=== PATIENT | male | born 1970 | race Caucasian/White ===

== ENCOUNTER 2016-04-19 18:43 | Emergency (ER) | payer OTHER ==
[~2016-04-19] VITALS: Ht 185.4 cm; Wt 168.6 kg
[~2016-04-19 18:43] MED LIST: ADULT LOW DOSE81 M1 PO; APRODINE TABLE1 EACH PO; CHOLESTEROL MEDS; CLARITIN,ALAVAR10 MG PO; ELAVIL25 MG PO; EXCEDRIN MIGRA1 EAC3 PO; FISH OIL; FISH OIL 1,0001 EAC7 PO; FLOMAX0.4 MG PO; GLUCOSE4 GM PO; HUMULIN; HUMULIN 70100 UNIT/2 SC; HUMULIN R100 UNITS/ SC; HYDROCHLOROTHIA25 MG PO; HYDROCHLOROTHIAZIDE; KENALOG-4040 MG/ML IM; LASIX; LASIX40 MG PO; LIPITOR20 MG PO; LISINOPRIL; LISINOPRIL40 MG PO; LOPID600 MG PO; MULTIVITAMIN1 EAC2 PO; NASACORT AQ16.5 GM BOTH NARES; NEURONTIN600 MG PO; ONE DAILY MUL400 MCG PO; PRILOSEC20 MG PO; PROLIXIN2.5 MG PO; ZESTRIL40 MG PO; ZOCOR20 MG PO
[2016-04-19 19:53] LABS: HEMATOCRIT 33.2 % (38.0-50.0); MCH 28.9 PG (29.0-34.0); MCHC 32.2 G/DL (30.0-36.0); MCV 89.7 FL (86-99); MEAN PLAT.VOLUME 9.7 uM^3 (9.0-12.4); PLATELET COUNT 284 K/uL (156-360); RBC DIS.WIDTH-CV 16.4 % (11.8-14.6); RBC DIS.WIDTH-SD 53.6 % (39-53); WHITE BLOOD COUNT 7.3 K/uL (4.1-10.2)
[2016-04-19 20:04] LABS: CHLORIDE 102 mEq/L (99-109); POTASSIUM 5.1 mEq/L (3.7-5.4); SODIUM 130 mEq/L (136-147)
[2016-04-19 20:06] LABS: GLUCOSE 232 mg/dL (70-99)
[2016-04-19 20:07] LABS: ANION GAP 8 MEQ/L (2-14)
[2016-04-19 20:08] LABS: TOTAL BILIRUBIN 0.4 mg/dL (0.0-1.0)
[2016-04-19 20:10] LABS: ALKALINE PHOSPHATASE 110 IU/L (3-129); GFR ESTIMATE (CALCULATED) 29 mL/min/
[2016-04-19 20:11] LABS: UREA NITROGEN (BUN) 42 mg/dL (9-23)
[2016-04-19 20:12] LABS: DIRECT BILIRUBIN 0.1 mg/dL (0.0-0.3)
[2016-04-19 20:13] LABS: LIPASE 19 U/L (1.0-51.0)
[2016-04-19 20:13] LABS: TROP-I INTERPRETATION NEGATIVE; TROPONIN-I 0.02 ng/mL (0.0-0.30)
[2016-04-19 22:12] LABS: TROP-I INTERPRETATION NEGATIVE; TROPONIN-I 0.02 ng/mL (0.0-0.30)
[2016-04-19] MEDS ORDERED: NAPROSYN500 MG PO (22:37)
[2016-04-19 23:54] VITALS: BP 146/78
== END 2016-04-19 23:55 ==
LOC: EME → EDBD 18:43 → EME 18:43
PROVIDERS: Emergency Medicine
DX: R07.9 Chest pain, unspecified (principal); N28.9 Disorder of kidney and ureter, unspecified; E11.65 Type 2 diabetes mellitus with hyperglycemia; D64.9 Anemia, unspecified; D72.829 Elevated white blood cell count, unspecified; E11.40 Type 2 diabetes mellitus with diabetic neuropathy, unspecified; Z79.4 Long term (current) use of insulin; Z87.891 Personal history of nicotine dependence; I25.2 Old myocardial infarction; K21.9 Gastro-esophageal reflux disease without esophagitis; Z86.73 Personal history of transient ischemic attack (TIA), and cerebral infarction without residual deficits; H54.8 Legal blindness, as defined in USA; Z79.82 Long term (current) use of aspirin; N18.9 Chronic kidney disease, unspecified
CPT/HCPCS: 71020; 80048; 80076; 83690; 84484; 85027; 93005; 99281; 99284; J3010; J7030

== ENCOUNTER 2017-08-19 07:38 | Emergency (ER) | payer OTHER ==
[~2017-08-19] VITALS: Ht 182.9 cm; Wt 184.7 kg
[~2017-08-19 07:38] MED LIST changes: +NAPROSYN500 MG PO
[2017-08-19 09:29] LABS: BASOPHIL (%) 0.3 % (0-1); EOSINOPHIL (%) 1.3 % (0-5); EOSINOPHIL COUNT 0.1 K/uL (0-0.3); HEMATOCRIT 34.6 % (38.0-50.0); HEMOGLOBIN 11.3 G/DL (12.5-16.6); IMMATURE GRANULOCYTE (%) 0.4 % (0.0-0.7); LYMPHOCYTE COUNT 1.3 K/uL (1.0-2.8); MCH 30.7 PG (29.0-34.0); MCHC 32.7 G/DL (30.0-36.0); MONOCYTE (%) 5.4 % (3-12); MONOCYTE COUNT 0.5 K/uL (0-0.8); NEUTROPHIL (%) 78.6 % (45-76); NEUTROPHIL COUNT 7.5 K/uL (1.8-6.4); PLATELET COUNT 289 K/uL (156-360); RBC DIS.WIDTH-SD 56.9 % (39-53); RED BLOOD COUNT 3.68 M/uL (4.00-5.50); WHITE BLOOD COUNT 9.5 K/uL (4.1-10.2)
[2017-08-19 09:35] LABS: INTER. NORMALIZED RATIO 1.1
[2017-08-19 09:38] LABS: PTT 29.4 SEC (25-37)
[2017-08-19 09:40] LABS: CHLORIDE 110 mEq/L (99-109); POTASSIUM 4.4 mEq/L (3.7-5.4); SODIUM 142 mEq/L (136-147)
[2017-08-19 09:42] LABS: GLUCOSE 108 mg/dL (70-99)
[2017-08-19 09:46] LABS: CREATININE 2.7 mg/dL (0.6-1.3); GFR ESTIMATE (CALCULATED) 27 mL/min/ (58.99-99999); UREA NITROGEN (BUN) 32 mg/dL (9-23)
[2017-08-19 10:27] LABS: CREATINE KINASE 1259 IU/L (1-294); HDL CHOLESTEROL 33 MG/DL (Desirable>=40); LDL CHOLESTEROL 251 mg/dL (Desirable<100); NON-HDL CHOLESTEROL 299 mg/dL (Desirable<160); TOTAL CHOLESTEROL 332 mg/dL (Desirable<200); TRIGLYCERIDES 240 MG/DL (Normal: <150)
[2017-08-19 11:00] LABS: TROP-I INTERPRETATION NEGATIVE; TROPONIN-I 0.02 ng/mL (0.0-0.30)
[2017-08-19 11:22] LABS: APPEARANCE CLEAR ((CLEAR)); BILIRUBIN NEGATIVE; BLOOD SMALL; COLOR YELLOW ((YELLOW)); GLUCOSE (STRIP) 150; KETONES NEGATIVE; LEUKOCYTES NEGATIVE; NITRITE NEGATIVE; PROTEIN (STRIP) >=500; SPECIFIC GRAVITY 1.017 (1.000-1.030); UROBILINOGEN 0.2 MG/DL (0.2-1.0)
[2017-08-19 11:37] LABS: BACTERIA RARE /HPF; EPITHELIAL CELLS RARE /HPF; HYALINE CASTS 0-5 /LPF; MUCUS TRACE /LPF; RED BLOOD CELLS 0-5 /HPF (0-5); UCUL ADDED? NO; WHITE BLOOD CELLS 0-5 /HPF (0-5)
[2017-08-19 13:19] LABS: TROP-I INTERPRETATION NEGATIVE; TROPONIN-I 0.02 ng/mL (0.0-0.30)
[2017-08-19 18:58] VITALS: BP 187/100
[2017-08-20 13:35] LABS: HEMOGLOBIN A1c (GLYCOHEMOGLOB) 8.4 % (Below 5.7)
== END 2017-08-19 18:58 | disposition short-term general hospital (02) ==
LOC: EME 07:38
PROVIDERS: Physician Assistant
DX: R07.9 Chest pain, unspecified (principal); S82.145A Nondisplaced bicondylar fracture of left tibia, initial encounter for closed fracture; I12.9 Hypertensive chronic kidney disease with stage 1 through stage 4 chronic kidney disease, or unspecified chronic kidney disease; E11.22 Type 2 diabetes mellitus with diabetic chronic kidney disease; N18.9 Chronic kidney disease, unspecified; R74.8 Abnormal levels of other serum enzymes; W19.XXXA Unspecified fall, initial encounter; M79.605 Pain in left leg; Z86.73 Personal history of transient ischemic attack (TIA), and cerebral infarction without residual deficits; Z79.4 Long term (current) use of insulin; H54.8 Legal blindness, as defined in USA; I25.2 Old myocardial infarction; K21.9 Gastro-esophageal reflux disease without esophagitis; E11.40 Type 2 diabetes mellitus with diabetic neuropathy, unspecified; Z87.891 Personal history of nicotine dependence; E66.01 Morbid (severe) obesity due to excess calories; Z68.43 Body mass index [BMI] 50.0-59.9, adult
CPT/HCPCS: 70450; 71045; 73564; 80048; 80061; 81003; 82550; 83036; 84484; 85025; 85610; 85730; 93005; 93971; 99281; 99283; J3010; J7030